=== PATIENT | male | born 1970 | race Caucasian/White ===

== ENCOUNTER 2016-12-15 17:01 | Emergency (ER) | payer MEDICAID ==
[~2016-12-15] VITALS: Ht 172.7 cm; Wt 100.7 kg
[~2016-12-15 17:01] MED LIST: ALLO100T; IBUP800T24; INDO75CA
[2016-12-15 17:10] VITALS: BP 141/81
[2016-12-15] MEDS ORDERED: KETOROLAC TROMETH 60MG/2ML VIAL IM ONE (19:00)
[2016-12-15] MEDS ORDERED: methylPREDNISolone SOD SUCC 125 MG/2 ML VL IM ONE (19:00)
== END 2016-12-15 19:15 | disposition home or self-care (01) ==
LOC: ER 17:07
DX: M10.061 Idiopathic gout, right knee (principal); J45.909 Unspecified asthma, uncomplicated; Z88.0 Allergy status to penicillin; Z88.6 Allergy status to analgesic agent
CPT/HCPCS: 96372; 99284; J1885; J2930

== ENCOUNTER 2016-12-17 18:22 | Emergency (ER) | payer MEDICAID ==
[~2016-12-17] VITALS: Ht 172.7 cm; Wt 97.5 kg
[2016-12-17 18:33] VITALS: BP 141/90
[2016-12-17] MEDS ORDERED: KETOROLAC TROMETH 60MG/2ML VIAL IM ONE (20:15)
== END 2016-12-17 21:07 | disposition home or self-care (01) ==
LOC: ER 18:28
DX: M1A.9XX0 Chronic gout, unspecified, without tophus (tophi) (principal); H66.91 Otitis media, unspecified, right ear; Z88.6 Allergy status to analgesic agent; Z88.0 Allergy status to penicillin
CPT/HCPCS: 96372; 99283; J1885

== ENCOUNTER 2019-09-09 09:56 | Emergency (ER) | payer MEDICAID ==
[~2019-09-09] VITALS: Ht 172.7 cm; Wt 97.5 kg
[2019-09-09] MEDS ORDERED: methylPREDNISolone SOD SUCC 125 MG/2 ML VL IM ONE (12:30)
[2019-09-09 12:32] VITALS: BP 139/92
== END 2019-09-09 12:58 | disposition home or self-care (01) ==
LOC: ER 09:56
DX: M10.9 Gout, unspecified (principal); M79.674 Pain in right toe(s); J45.909 Unspecified asthma, uncomplicated
CPT/HCPCS: 73630; 96372; 99283; J2930